=== PATIENT | female | born 1965 | race Asian ===

== ENCOUNTER 2017-11-25 22:23 | Emergency (ER) | payer OTHER ==
--- NOTE | 2017-11-25 22:44 | ER Document Report ---
ED General - General Stated Complaint: POSSIBLE SYNCOPAL EPISODE Time Seen by Provider: 11/25/17 22:32 Notes: Patient is a 52-year-old female presents with complaint of a syncopal episode. Patient says that she was also smoking a cigarette and came inside. She did feel nauseous and started to have hot flashes. She then went to the bathroom. She had a bowel movement and then passed out. Family lives next to her. They did keep her from falling over. This first time she has ever had a syncopal episode. Per medics first arrived her blood pressure was little bit low with her systolic in the 90s. She denies any recent fevers or infections. She denies any changes in medications. Patient says she did give plasma today which is first time she has done this for a long time. She takes metformin as well as blood pressure medication. No other complaints at this time. She currently feels well. She denies having chest pain or shortness of breath. She denies having headache. She denies abdominal pain. TRAVEL OUTSIDE OF THE [place] IN LAST 30 DAYS: No - Related Data Allergies/Adverse Reactions: No Known Allergies Allergy (Unverified 09/20/12 09:07) Past Medical History - Social History Smoking Status: Current Every Day Smoker Frequency of alcohol use: None Drug Abuse: None Family History: Reviewed & Not Pertinent - Past Medical History Cardiac Medical History: Reports: Hx Coronary Artery Disease, Hx Hypertension Denies: Hx Heart Attack Pulmonary Medical History: Denies: Hx Asthma, Hx Bronchitis, Hx COPD, Hx Pneumonia Neurological Medical History: Denies: Hx Cerebrovascular Accident, Hx Seizures Musculoskeltal Medical History: Reports Hx Arthritis - knees Past Surgical History: Denies: Hx Pacemaker - Immunizations Hx Diphtheria, Pertussis, Tetanus Vaccination: Yes Review of Systems - Review of Systems Notes: My Normal Review Basic REVIEW OF SYSTEMS: CONSTITUTIONAL : Denies fever, chills, or sweats. Denies recent illness. EENT: Denies eye, ear, throat, or mouth pain or symptoms. Denies nasal or sinus congestion. CARDIOVASCULAR: Denies chest pain. RESPIRATORY: Denies cough, cold, or chest congestion. Denies shortness of breath, difficulty breathing, or wheezing. GASTROINTESTINAL: Denies abdominal pain. Denies nausea, vomiting, or diarrhea. Denies constipation. Last BM: MUSCULOSKELETAL: Denies neck or back pain or joint pain or swelling. SKIN: Denies rash or skin lesions. NEUROLOGICAL: Syncopal episode. Denies headache. Denies weakness or paralysis or loss of use of either side. Denies problems with gait or speech. Denies sensory or motor loss. ALL OTHER SYSTEMS REVIEWED AND NEGATIVE. Physical Exam - Vital signs Vitals: Temp Pulse Resp BP Pulse Ox 97.4 F 65 16 125/72 100 11/25/17 22:36 11/25/17 22:36 11/25/17 22:36 11/25/17 22:36 11/25/17 22:36 - Notes Notes: General Appearance: Well nourished, alert, cooperative, no acute distress, no obvious discomfort. Vitals: reviewed, See vital signs table. Head: no swelling or tenderness to the head Eyes: PERRL, EOMI, Conjuctiva clear Mouth: No decreasd moisture Throat: No tonsillar inflammation, No airway obstruction, Neck: Supple, no neck tenderness, No thyromegaly Lungs: No wheezing, No rales, No rhonci, No accessory muscle use, good air exchange bilaterally. Heart: Normal rate, Regular rythm, No murmur, no rub Abdomen: Normal BS, soft, No rigidity, No abdominal tenderness, No guarding, no rebound, no abdominal masses, no organomegaly Extremities: strength 5/5 in all extremities, good pulses in all extremities, no swelling or tenderness in the extremities, no edema. Skin: warm, dry, appropriate color, no rash Neuro: speech clear, oriented x 3, normal affect, responds appropriately to questions. Cranial nerves II through XII are intact. Distal sensation intact. Patient moves all extremities without difficulty. Course - Re-evaluation Re-evalutation: 11/26/17 01:18 Patient is feeling much improved. She has normal blood pressure and vital signs. She is able stand without any difficulty without feeling dizzy or unwell. 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 I do not suspect cardiac etiology and that she had no chest pain, no shortness of breath, she had a normal EKG, and her troponin was negative. I do not suspect PE in that she has had no recent long road trips or travel, no leg pain or leg swelling, she is not tachypneic, not tachycardic, not hypoxic. Suspect most likely patient is probably hypovolemic due to recently donating plasma. Suspect this is most likely why she felt unwell and had a syncopal episode. Feel that she is safe to be discharged home at this time she looks well and her laboratory evaluation is unremarkable and her vital signs are normal. Encouraged her return to ER immediately if she has chest pain, shortness of breath, headache, vomiting, recurrent syncope, or she feels unwell. Patient agrees with plan will be discharged home. Dictation of this chart was performed using voice recognition software; therefore, there may be some unintended grammatical errors. - Vital Signs Vital signs: Temp Pulse Resp BP Pulse Ox 97.4 F 65 16 125/72 100 11/25/17 22:36 11/25/17 22:36 11/25/17 22:36 11/25/17 22:36 11/25/17 22:36 - Laboratory Result Diagrams: 11/26/17 00:15 11/26/17 00:15 Laboratory results interpreted by me: 11/26/17 11/26/17 00:15 00:15 WBC 13.8 H Plt Count 148 L Seg Neutrophils % 81.8 H Lymphocytes % 12.8 L Absolute Neutrophils 11.3 H Potassium 3.3 L Glucose 116 H - EKG Interpretation by Me Additional EKG results interpreted by me: 11/25/17 22:41 EKG is reviewed and interpreted by me. EKG shows normal sinus rhythm with a rate of [address] segment elevation or depression. No ischemic T-wave inversions. NH interval, QRS duration, QTc intervals are within normal range. No old EKG available for comparison. Discharge - Discharge Clinical Impression: Syncope Qualifiers: Syncope type: unspecified Qualified Code(s): R55 - Syncope and collapse Condition: Good Disposition: HOME, SELF-CARE Additional Instructions: Please do not over exert yourself over the next 24 hours and drink plenty of non -caffeinated liquids. Please follow up with your doctor in 2-3 days for reevaluation. Please return to the ER immediately if you develop fevers, severe headache, vomiting, chest pain, difficulty breathing, or if you feel unwell. Forms: Return to Work
[2017-11-26 00:34] LABS: ABSOLUTE BASOPHILS # (AUTO) 0.1 10^3/uL (0.0-0.2); ABSOLUTE EOSINOPHILS # (AUTO) 0.1 10^3/uL (0.0-0.6); ABSOLUTE LYMPHOCYTES (AUTO) 1.8 10^3/uL (0.5-4.7); ABSOLUTE MONOCYTES (AUTO) 0.5 10^3/uL (0.1-1.4); ABSOLUTE NEUT (AUTO) 11.3 10^3/uL (1.7-8.2); BASOPHILS % (AUTO) 0.9 % (0-2); EOSINOPHILS % (AUTO) 0.8 % (0-6); HEMATOCRIT 42.3 % (36.0-47.0); HEMOGLOBIN 14.3 g/dL (12.0-15.5); LYMPHOCYTES % (AUTO) 12.8 % (13-45); MEAN CORPUSCULAR HEMOGLOBIN 28.8 pg (27.0-33.4); MEAN CORPUSCULAR HGB CONC 33.9 g/dL (32.0-36.0); MEAN CORPUSCULAR VOLUME 85 fl (80-97); MONOCYTES % (AUTO) 3.7 % (3-13); PLATELET COUNT 148 10^3/uL (150-450); RED BLOOD COUNT 4.98 10^6/uL (3.72-5.28); RED CELL DISTRIBUTION WIDTH 12.6 % (11.5-14.0); SEGMENTED NEUTROPHILS % (AUTO) 81.8 % (42-78); TOTAL CELLS COUNTED % (AUTO) 100 %; WHITE BLOOD COUNT 13.8 10^3/uL (4.0-10.5)
[2017-11-26 00:45] LABS: ALANINE AMINOTRANSFERASE 10 U/L (9-52); ALBUMIN 3.8 g/dL (3.5-5.0); ALKALINE PHOSPHATASE 44 U/L (38-126); ANION GAP 8 (5-19); ASPARTATE AMINO TRANSFERASE 20 U/L (14-36); BILIRUBIN,DIRECT 0.2 mg/dL (0.0-0.4); BILIRUBIN,TOTAL 0.2 mg/dL (0.2-1.3); BLOOD UREA NITROGEN 17 mg/dL (7-20); CALCIUM 8.8 mg/dL (8.4-10.2); CARBON DIOXIDE 29 mmol/L (22-30); CHLORIDE 105 mmol/L (98-107); GLUCOSE 116 mg/dL (75-110); POTASSIUM 3.3 mmol/L (3.6-5.0); SODIUM 142.1 mmol/L (137-145); TOTAL PROTEIN 6.5 g/dL (6.3-8.2)
--- NOTE | 2017-11-26 01:15 | RADIOLOGY REPORT (SQ) ---
EXAM DESCRIPTION: CHEST SINGLE VIEW CLINICAL HISTORY: 52 years, Female, syncope COMPARISON: 09.20.12 FINDINGS: Normal lung volume, clear parenchyma, normal cardiac silhouette, and intact bony thorax. IMPRESSION: No acute cardiopulmonary findings. 2011 [employer]- All Rights Reserved
[2017-11-26 01:30] VITALS: BP 121/80
--- NOTE | 2017-11-26 13:58 | EKG REPORT ---
SEVERITY:- BORDERLINE ECG - SINUS RHYTHM BORDERLINE T WAVE ABNORMALITIES : Confirmed by: Lio Figueroa 26-Nov-2017 13:58:10
== END 2017-11-26 01:35 | disposition home or self-care (01) ==
LOC: ER 22:23
DX: R55 Syncope and collapse (principal); R11.0 Nausea; F17.200 Nicotine dependence, unspecified, uncomplicated
CPT/HCPCS: 36415; 71045; 80053; 84484; 85025; 93005; 93010; 99284

== ENCOUNTER 2019-01-20 14:46 | Emergency (ER) | payer OTHER ==
[2019-01-20 15:02] VITALS: BP 158/90
[2019-01-20] MEDS ORDERED: ACETAMINOPHEN 325 MG TABLET PO ONE (15:19)
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
== END 2019-01-20 15:30 | disposition home or self-care (01) ==
LOC: ER 14:46
DX: G44.209 Tension-type headache, unspecified, not intractable (principal); M54.2 Cervicalgia; V89.2XXA Person injured in unspecified motor-vehicle accident, traffic, initial encounter; I25.10 Atherosclerotic heart disease of native coronary artery without angina pectoris; I10 Essential (primary) hypertension
CPT/HCPCS: 99283

== ENCOUNTER 2019-04-14 00:46 | Emergency (ER) | payer OTHER ==
--- NOTE | 2019-04-14 02:01 | ER Document Report ---
ED General - General Chief Complaint: Passed Out Prior to Arrival Stated Complaint: PASSED OUT, HIT HEAD Time Seen by Provider: 04/14/19 01:42 Primary Care Provider: STEVE GALLEGOS MD [Primary Care Provider] - Follow up in 3-5 days Notes: Patient is a 54-year-old female that presents to the emergency department for chief complaint of syncopal episode and head injury. Patient states that she went to sleep around 1030 this evening, and states that she got up and walked towards her kitchen, and lasting she remembers is waking up on the floor by her refrigerator, and was feeling a headache. She does not recall why this happened, or the events preceding it other than what was noted above. She states she has had an episode where she passed on the past, but at that time she was lightheaded, diaphoretic and nauseous right before. She states she does not sleep walk, believes that she is unaware of, but she lives at home by herself. She denies any history of seizure disorder. She was feeling somewhat dizzy afterwards, stating she had some room spinning type symptoms. Denies having any chest pain at this time, denies shortness of breath, difficulty breathing, nausea, vomiting, dysuria or hematuria recently. Denies any recent illnesses. She reports drinking a glass and a half of wine last night, but no other drugs. Past Medical History: Hypertension, hypothyroidism, borderline diabetes Past Surgical History: , tonsillectomy Social History: Admits to smoking cigarettes and occasional alcohol use, denies illicit drug use. Family History: Reviewed and noncontributory for presenting illness Allergies: Reviewed, see documented allergy list. REVIEW OF SYSTEMS: Other than noted above, the 12 point review of systems was reviewed with the patient and were negative, all pertinent findings are included in the HPI. PHYSICAL EXAMINATION: Vital signs reviewed, nursing noted reviewed. GENERAL: Well-appearing, well-nourished and in no acute distress. HEAD: Right scalp hematoma, without laceration or bleeding. Mild tenderness to palpation. EYES: Eyes appear normal, extraocular movements intact, sclera anicteric, conjunctiva are normal. Patient does have horizontal gaze nystagmus, when looking towards the left. ENT: nares patent, oropharynx clear without exudates. Moist mucous membranes. TMs appear normal bilaterally. NECK: Normal range of motion, supple without lymphadenopathy LUNGS: Breath sounds clear to auscultation bilaterally and equal. No wheezes rales or rhonchi. Patient did report some pleuritic pain in the right posterior back with deep breathing. HEART: Regular rate and rhythm without murmurs ABDOMEN: Soft, nontender, normoactive bowel sounds. No rebound, guarding, or rigidity. No masses appreciated. EXTREMITIES: Nontender, good range of motion, no pitting or edema. NEUROLOGICAL: No focal neurological deficits. Moves all extremities spontaneousl y Motor and sensory grossly intact on exam. PSYCH: Patient is mildly anxious, but otherwise answering questions appropriately. SKIN: Warm, Dry, normal turgor, no rashes or lesions noted on exposed skin TRAVEL OUTSIDE OF THE [place] IN LAST 30 DAYS: No - Related Data Allergies/Adverse Reactions: lisinopril Allergy (Verified 01/20/19 15:24) Past Medical History - Social History Smoking Status: Never Smoker Family History: Reviewed & Not Pertinent - Past Medical History Cardiac Medical History: Reports: Hx Coronary Artery Disease, Hx Hypertension Denies: Hx Heart Attack Pulmonary Medical History: Denies: Hx Asthma, Hx Bronchitis, Hx COPD, Hx Pneumonia Neurological Medical History: Denies: Hx Cerebrovascular Accident, Hx Seizures Renal/ Medical History: Denies: Hx Peritoneal Dialysis Musculoskeletal Medical History: Reports Hx Arthritis - knees Past Surgical History: Reports: Hx Section - x2, Hx Tonsillectomy. Denies: Hx Pacemaker - Immunizations Hx Diphtheria, Pertussis, Tetanus Vaccination: Yes Physical Exam - Vital signs Vitals: Temp Pulse Resp BP Pulse Ox 98 F 75 16 117/78 97 04/14/19 00:54 04/14/19 00:54 04/14/19 00:54 04/14/19 00:54 04/14/19 00:54 Course - Re-evaluation Re-evalutation: Patient seen and examined vital signs reviewed. Laboratory data and/or imaging were ordered as appropriate for the patient's presenting symptoms and complaint, with consideration of any critical or life threatening conditions that may be associated with their obtained history and exam as noted above. Patient was treated with IV fluids, meclizine, Reglan, and Tylenol Results were reviewed when available and demonstrated negative CT imaging of the head with the exception of mild scalp hematoma, without intracranial injury, CTA of the chest, was ordered due to the patient's syncopal episode, and pleuritic chest pain on exam, and this was negative for pulmonary embolism or any other intrathoracic acute issue. Blood work was unremarkable The patient was re-evaluated and was stable, no further lightheadedness, and overall was feeling improved Evaluation was most consistent with syncopal episode, etiology is unclear, however I do not feel this patient had a life-threatening cause of her syncope today after her evaluation, and monitoring and the emergency department. She was advised however if her symptoms return, that she should return to the emergency department immediately, and also to follow-up with her primary care. Results were discussed with the patient at this point, after careful consideration I feel that that patient can be discharged from the emergency department, the patient was educated treatments and reasons to return to the emergency department based on their presumed diagnosis as noted above, they were advised to followup with a primary care physician in 2-3 days. Patient was agreeable to plan of care. *Note is created using voice recognition software and may contain spelling, syntax or grammatical errors. Laboratory 04/14/19 04/14/19 04/14/19 02:25 02:25 02:25 WBC 6.9 RBC 4.59 Hgb 13.6 Hct 38.7 MCV 84 MCH 29.5 MCHC 35.0 RDW 12.5 Plt Count 216 Seg Neutrophils % 77.9 Lymphocytes % 16.2 Monocytes % 4.0 Eosinophils % 1.5 Basophils % 0.4 Absolute Neutrophils 5.3 Absolute Lymphocytes 1.1 Absolute Monocytes 0.3 Absolute Eosinophils 0.1 Absolute Basophils 0.0 Sodium 145.9 H Potassium 3.6 Chloride 106 Carbon Dioxide 30 Anion Gap 10 BUN 18 Creatinine 0.68 Est GFR ( Amer) > 60 Est GFR (Non-Af Amer) > 60 Glucose 113 H Calcium 9.2 Total Bilirubin 0.3 Direct Bilirubin 0.2 Neonat Total Bilirubin Not Reportable Neonat Direct Bilirubin Not Reportable Neonat Indirect Bili Not Reportable AST 21 ALT 15 Alkaline Phosphatase 52 Troponin I < 0.012 Total Protein 7.1 Albumin 4.0 TSH Free T4 04/14/19 02:25 WBC RBC Hgb Hct MCV MCH MCHC RDW Plt Count Seg Neutrophils % Lymphocytes % Monocytes % Eosinophils % Basophils % Absolute Neutrophils Absolute Lymphocytes Absolute Monocytes Absolute Eosinophils Absolute Basophils Sodium Potassium Chloride Carbon Dioxide Anion Gap BUN Creatinine Est GFR ( Amer) Est GFR (Non-Af Amer) Glucose Calcium Total Bilirubin Direct Bilirubin Neonat Total Bilirubin Neonat Direct Bilirubin Neonat Indirect Bili AST ALT Alkaline Phosphatase Troponin I Total Protein Albumin TSH 0.54 Free T4 1.06 Chest/Abdomen CTA 04/14/19 02:02 IMPRESSION: No aortic dissection or aneurysm. No pulmonary embolus. No pneumonia. Head CT 04/14/19 02:02 IMPRESSION: Scalp swelling/injury. Small right maxillary fluid could be due to acute inflammatory process or posttraumatic. Else, unremarkable. - Vital Signs Vital signs: Temp Pulse Resp BP Pulse Ox 98.8 F 75 14 140/85 H 99 04/14/19 04:30 04/14/19 00:54 04/14/19 04:30 04/14/19 04:30 04/14/19 04:30 - Laboratory Result Diagrams: 04/14/19 02:25 04/14/19 02:25 Laboratory results interpreted by me: 04/14/19 02:25 Sodium 145.9 H Glucose 113 H - EKG Interpretation by Me Additional EKG results interpreted by me: EKG demonstrates sinus rhythm with a ventricular rate of 70 bpm, no evidence of acute ischemia in this EKG, this is compared with a prior EKG from 11/25/2017, without significant change. Discharge - Discharge Clinical Impression: Syncope Qualifiers: Syncope type: unspecified Qualified Code(s): R55 - Syncope and collapse Head injury Qualifiers: Encounter type: initial encounter Qualified Code(s): S09.90XA - Unspecified injury of head, initial encounter Condition: Stable Disposition: HOME, SELF-CARE Instructions: Syncopal Episode ([facility]) Additional Instructions: Please follow-up with your primary care physician, if you have another episode like this, do not hesitate to return to the emergency department, remember to drink plenty of fluids. Referrals: STEVE GALLEGOS MD [Primary Care Provider] - Follow up in 3-5 days
[2019-04-14] MEDS ORDERED: NORMAL SALINE 1000 ML 1,000 ML IV ONE (02:02)
[2019-04-14] MEDS ORDERED: MECLIZINE HCL 25 MG TABLET PO ONE (02:03)
[2019-04-14] MEDS ORDERED: ACETAMINOPHEN 325 MG TABLET PO ONE (02:03)
[2019-04-14] MEDS ORDERED: METOCLOPRAMIDE HCL INJ/PF 10 MG/2 ML SDV IV ONE (02:03)
[2019-04-14 02:33] LABS: ABSOLUTE EOSINOPHILS # (AUTO) 0.1 10^3/uL (0.0-0.6); ABSOLUTE LYMPHOCYTES (AUTO) 1.1 10^3/uL (0.5-4.7); ABSOLUTE MONOCYTES (AUTO) 0.3 10^3/uL (0.1-1.4); ABSOLUTE NEUT (AUTO) 5.3 10^3/uL (1.7-8.2); BASOPHILS % (AUTO) 0.4 % (0-2); EOSINOPHILS % (AUTO) 1.5 % (0-6); HEMATOCRIT 38.7 % (36.0-47.0); HEMOGLOBIN 13.6 g/dL (12.0-15.5); LYMPHOCYTES % (AUTO) 16.2 % (13-45); MEAN CORPUSCULAR HEMOGLOBIN 29.5 pg (27.0-33.4); MEAN CORPUSCULAR VOLUME 84 fl (80-97); PLATELET COUNT 216 10^3/uL (150-450); RED BLOOD COUNT 4.59 10^6/uL (3.72-5.28); RED CELL DISTRIBUTION WIDTH 12.5 % (11.5-14.0); SEGMENTED NEUTROPHILS % (AUTO) 77.9 % (42-78); TOTAL CELLS COUNTED % (AUTO) 100 %; WHITE BLOOD COUNT 6.9 10^3/uL (4.0-10.5)
[2019-04-14 02:54] LABS: ALANINE AMINOTRANSFERASE 15 U/L (9-52); ALKALINE PHOSPHATASE 52 U/L (38-126); ANION GAP 10 (5-19); ASPARTATE AMINO TRANSFERASE 21 U/L (14-36); BILIRUBIN,DIRECT 0.2 mg/dL (0.0-0.4); BILIRUBIN,TOTAL 0.3 mg/dL (0.2-1.3); BLOOD UREA NITROGEN 18 mg/dL (7-20); CALCIUM 9.2 mg/dL (8.4-10.2); CARBON DIOXIDE 30 mmol/L (22-30); CHLORIDE 106 mmol/L (98-107); GLUCOSE 113 mg/dL (75-110); POTASSIUM 3.6 mmol/L (3.6-5.0); SODIUM 145.9 mmol/L (137-145); TOTAL PROTEIN 7.1 g/dL (6.3-8.2)
--- NOTE | 2019-04-14 03:31 | RADIOLOGY REPORT (SQ) ---
EXAM DESCRIPTION: CT HEAD WITHOUT IV CONTRAST COMPLETED DATE/TME: 04/14/2019 02:02 CLINICAL HISTORY: 54 years Female, headache, head injury COMPARISON: None. TECHNIQUE: No contrast. Coronal and sagittal reformat. This exam was performed according to our departmental dose-optimization program, which includes automated exposure control, adjustment of the mA and/or kV according to patient size and/or use of iterative reconstruction technique. FINDINGS: No hemorrhage or infarct. No mass, mass effect, or midline shift. Minimal right maxillary fluid. Small left parietal scalp swelling. Brain and extra-axial structures appear otherwise intact. IMPRESSION: Scalp swelling/injury. Small right maxillary fluid could be due to acute inflammatory process or posttraumatic. Else, unremarkable.
--- NOTE | 2019-04-14 03:48 | RADIOLOGY REPORT (SQ) ---
CLINICAL HISTORY: syncope, pleuritic chest pain COMPARISON: None. TECHNIQUE: CT CHEST ANGIOGRAPHY WITHOUT THEN WITH IV CONTRAST on 04/14/2019 2:02 AM CDT. MIPS reconstructions were generated. This exam was performed according to our departmental dose-optimization program, which includes automated exposure control, adjustment of the mA and/or kV according to patient size and/or use of iterative reconstruction technique. MIP images were generated. FINDINGS: Thoracic aorta is normal in course and caliber without aneurysm or dissection. Pulmonary arteries are adequately opacified without acute or chronic filling defects. The heart is normal in size. There is no pericardial effusion. Intrathoracic lymph nodes are not enlarged. There is no pleural effusion, pleural thickening or pneumothorax. Central airways are patent. Lungs are clear with no consolidation, mass or interstitial lung disease. There are no acute abnormalities within the limited images of the upper abdomen. There are no acute osseous findings. No suspicious bony lesions. IMPRESSION: No aortic dissection or aneurysm. No pulmonary embolus. No pneumonia.
[2019-04-14 04:02] LABS: FREE T4 (FREE THYROXINE) 1.06 ng/dL (0.78-2.19)
[2019-04-14 04:16] LABS: THYROID STIMULATING HORMONE 0.54 uIU/mL (0.47-4.68)
[2019-04-14 04:41] VITALS: BP 140/85
--- NOTE | 2019-04-14 08:43 | EKG REPORT ---
SEVERITY:- BORDERLINE ECG - SINUS RHYTHM PROBABLE LEFT ATRIAL ABNORMALITY : Confirmed by: Lio Figueroa 14-Apr-2019 08:40:18
== END 2019-04-14 04:42 | disposition home or self-care (01) ==
LOC: ER 00:46
DX: R55 Syncope and collapse (principal); S09.90XA Unspecified injury of head, initial encounter; W18.30XA Fall on same level, unspecified, initial encounter; Y92.000 Kitchen of unspecified non-institutional (private) residence as the place of occurrence of the external cause; I25.10 Atherosclerotic heart disease of native coronary artery without angina pectoris; I10 Essential (primary) hypertension
CPT/HCPCS: 93005; 99284; 96361; 96374; 36415; 84439; 84443; 85025; 80053; 84484; 70450; 71275; 93010; J2765; J7030

== ENCOUNTER → 2020-05-16 | Outpatient (CLI) | payer OTHER ==
--- NOTE | 2020-05-16 13:02 | WOMENS IMAGING REPORT ---
EXAM DESCRIPTION: BILAT SCREENING MAMMO W/CAD IMAGES COMPLETED DATE/TIME: 05/16/2020 10:36 am REASON FOR STUDY: Z12.31 ENCOUNTER FOR SCREENING MAMMOGRAM FOR MALIGNANT NEOPLASM OF BREAST Z12.31 ENCNTR SCREEN MAMMOGRAM FOR MALIGNANT NEOPLASM OF DAGOBERTO COMPARISON: 07/31/2015 EXAM PARAMETERS: Standard craniocaudal and mediolateral oblique views of each breast recorded using digital acquisition. . Read with the assistance of CAD. .[facility] - [employer] Version 9.2 LIMITATIONS: None. FINDINGS: No suspicious masses, suspicious calcifications or architectural distortion. No areas of c oncern. IMPRESSION: NEGATIVE MAMMOGRAM. BIRADS 1 BREAST DENSITY: b. There are scattered areas of fibroglandular density. BIRAD: ASSESSMENT: 1 NEGATIVE RECOMMENDATION: ROUTINE SCREENING COMMENT: The patient has been notified of the results by letter per MQSA requirements. Additional no tification policies are in place for contacting patient with suspicious or incomplete findings. Quality ID #[id number]: The [employer] recommends an annual screening mammogram for women aged 40 years or over. This facility utilizes a reminder system to ensure that all patients receive reminder letters, and/or direct phone calls for appointments. This includes reminders for routine scr eening mammograms, diagnostic mammograms, or other Breast Imaging Interventions when appropriate. Th is patient will be placed in the appropriate reminder system. TECHNICAL DOCUMENTATION: FINDING NUMBER: (1) ASSESSMENT: (1) JOB ID: [id number] 2010 [employer]- All Rights Reserved Reading location - IP/workstation name: [email or web address]
== END ==
LOC: WI 10:47
PROVIDERS: ATTEND Physician Assistant
DX: Z12.31 Encounter for screening mammogram for malignant neoplasm of breast (principal)
CPT/HCPCS: 77067